=== PATIENT | male | born 1970 ===

== ENCOUNTER 2020-02-28 23:38 | Emergency (ER) | payer OTHER ==
--- NOTE | 2020-02-28 23:43 | PDOC ---
History of Present Illness - General Chief Complaint: Foreign Body (FB) Stated Complaint: CUT RIGHT RING FINGER WITH GLASS Time Seen by Provider: 02/28/20 23:40 - History of Present Illness Initial Comments: This 49-year-old man with a history of chronic back pain but no other significant past medical history presents with injury to his right ring finger. The patient states that while eating dinner approximately 24 hours prior to presentation, a glass he was using broke and he sustained a small laceration of the distal portion of his right ring finger. He states that the glass shattered into many small pieces. Patient was able to stop the bleeding of the laceration with direct pressure. No other injury sustained. Today, the patient states he has sensation of sharp discomfort in the area of the laceration, especially if he presses around the wound. No further bleeding or discharge noted. Patient is not up-to-date with his tetanus prophylaxis immunization. No history of poor wound healing or resistant organism colonization/infection On no daily medications Allergy: Ibuprofen (facial edema) Non-smoker; no daily alcohol or other recreational drug use Past History - Medical History Allergies/Adverse Reactions: Allergies Allergy/AdvReac Type Severity Reaction Status Date / Time ibuprofen Allergy Verified 02/28/20 23:39 Home Medications: Ambulatory Orders NK [No Known Home Medication] 02/28/20 Review of Systems - Review of Systems Able to Perform ROS?: Yes Comments:: 12 point review of systems is negative except for what is noted in the history of present illness *Physical Exam - Physical Exam GENERAL: Adult male, alert and oriented x3, no acute distress HEAD: Normal with no signs of trauma. EYES: PERRLA, EOMI, sclera anicteric, conjunctiva clear. EXTREMITIES: Normal range of motion, no edema. No clubbing or cyanosis. No erythema, or tenderness. NEUROLOGICAL: Cranial nerves II through XII grossly intact. Normal speech. No focal neurological deficits. MUSCULOSKELETAL: Back non-tender to palpation, no CVA tenderness SKIN: Warm, Dry, normal turgor, 0.5 cm nonbleeding, partially healed laceration palmar surface, distal p halanx right fourth finger; no erythema, fluctuance or discharge Slightly firm, small (few millimeter) linear area palpated superficial area of wound; area is mildly tender. No obvious foreign body visualized Medical Decision Making - Medical Decision Making 49-year-old man, otherwise healthy, presents with laceration sustained 24 hours prior to presentation when a drinking glass he was using broke with small fragments produced. Patient was able to control bleeding with direct pressure but today has sensation of discomfort on palpation of the wound. Exam notable for well-healing wound but firm, small linear area felt in the superficial wound. X-ray of the right fourth finger obtained: Preliminary interpretation by me: Few millimeter linear radiodense object consistent with foreign body seen just below skin surface in the palmar aspect of the distal phalanx. No fracture/dislocation or other acute findings Results discussed with the patient. X-ray image suggests that small foreign body may be present in the wound. Since it is been over 24 hours since the wound was sustained, it can no longer be sutured. Local anesthesia would be given followed by exploration and removal of the foreign body if it is present. The wound would then be left open to heal by second intention. Patient decided to defer exploration and removal of foreign body. Patient will be discharged with suggestion to return to the ER if area becomes red, swollen, more painful. Meanwhile, he can soak the wound in an effort to hasten the natural expulsion of the foreign body. Boostrix tetanus immunization was administered. Discharge - Discharge Information Problems reviewed: Yes Clinical Impression/Diagnosis: Superficial foreign body of right ring finger Qualifiers: Encounter type: initial encounter Qualified Code(s): S60.454A - Superficial foreign body of right ring finger, initial encounter Condition: Stable Disposition: HOME - Follow up/Referral - Patient Discharge Instructions Additional Instructions: warm soaks of finger(15 min) 2-3 times a day return or see your doctor if area becomes more painful, swollen, red - Post Discharge Activity
[2020-02-28 23:44] VITALS: BP 146/94; PULSE 55; TEMP 98.6; BMI 22.6
[2020-02-29] MEDS ORDERED: DIPHTH,PERTUSS(ACELL),TET 0.5 ML DISP.SYRIN IM ONE ×2 (00:05→00:23)
--- NOTE | 2020-02-29 09:17 | PDOC ---
Patient Follow-up (Call Back) - Post ED Follow - Up Condition at time of discharge: Stable Disposition at time of original discharge: HOME Reason for Call Back: Radiology (Dr. Monroe called to state that there was indeed a fourth digit foreign body. The foreign body was made noted by the attending provider at time of visit. Patient deferred exploration of the finger to remove the foreign body at that time. No further action is needed.)
== END 2020-02-29 00:53 | disposition home or self-care (01) ==
LOC: FER 23:38
PROC: 3E0234Z Introduction of Serum, Toxoid and Vaccine into Muscle, Percutaneous Approach (ICD-10-PCS; principal; 2020-02-28)
DX: S60.454A Superficial foreign body of right ring finger, initial encounter (principal)
CPT/HCPCS: 73140-TC-RT-FY; 90715; 99284-25